=== PATIENT | male | born 1945 | race Caucasian/White ===

== ENCOUNTER 2019-06-20 21:55 | Emergency (ER) | payer MEDICARE ==
--- NOTE | 2019-06-20 22:08 | ED Physician Documentation ---
History of Present Illness - Stated complaint Stated Complaint: CP - Chief complaint Chief Complaint: Cardiac - History obtained from History obtained from: Patient (the patient is a 73 y/o m w chest pain for 1 month off and on and worse this evening. Patient also words that he has a history of polycythemia vera he also has newly diagnosed insulin-dependent diabetes his blood sugars have been running in the 500s today. Denies fevers or recent cough or illness.Denies any history of pulmonary embolism or DVT or [place] or stroke.) Review of Systems Constitutional: reports: Reviewed and negative Eyes: reports: Reviewed and negative Ears: reports: Reviewed and negative Nose: reports: Reviewed and negative Throat: reports: Reviewed and negative Cardiac: reports: Chest pain / pressure Respiratory: reports: Reviewed and negative GI: reports: Reviewed and negative : reports: Reviewed and negative Skin: reports: Reviewed and negative Musculoskeletal: reports: Reviewed and negative Neurologic: reports: Reviewed and negative Psychiatric: reports: Reviewed and negative Endocrine: reports: Reviewed and negative Immunocompromised: reports: Reviewed and negative PD PAST MEDICAL HISTORY - Past Medical History Cardiovascular: None Respiratory: None Endocrine/Autoimmune: Type 2 diabetes GI: None : None HEENT: None Musculoskeletal: None Derm: None - Past Surgical History Past Surgical History: Yes - Present Medications Home Medications: Ambulatory Orders Medication Instructions Recorded Confirmed Ascorbate Calcium [Vitamin C] 120 gm PO Q7D 11/02/12 03/31/19 Aspirin Chewable [[employer] 81 mg PO DAILY 11/02/12 03/31/19 Aspirin] Cholecalciferol (Vitamin D3) 5,000 unit PO DAILY 11/02/12 03/31/19 [Vitamin D] Hydroxyurea [Hydrea] 500 mg PO DAILY 30 Days #45 capsule 04/01/18 03/31/19 metFORMIN [Glucophage] 500 - 1,000 mg PO BID 01/20/19 03/31/19 - Allergies Allergies/Adverse Reactions: Allergies Allergy/AdvReac Type Severity Reaction Status Date / Time Penicillins Allergy Rash Verified 06/20/19 22:00 simvastatin Allergy Itching Verified 06/20/19 22:00 berberine AdvReac Unknown Verified 06/20/19 22:00 gabapentin AdvReac Unknown Verified 06/20/19 22:00 - Social History Does the pt smoke?: No Smoking Status: Never smoker Does the pt have substance abuse?: No - Immunizations Immunizations are current?: Yes - POLST Patient has POLST: Yes PD ED PE NORMAL - Vitals Vital signs reviewed: Yes - General General: Alert and oriented X 3, No acute distress, Well developed/nourished - HEENT HEENT: Atraumatic, PERRL, Moist mucous membranes - Neck Neck: Supple, no meningeal sign, Thyroid normal, No JVD - Cardiac Cardiac: RRR, No murmur, Strong equal pulses - Respiratory Respiratory: No respiratory distress, Clear bilaterally - Abdomen Abdomen: Normal bowel sounds, Soft, Non tender, Non distended, No organomegaly - Back Back: No CVA TTP, No spinal TTP - Derm Derm: Normal color, Warm and dry, No rash - Extremities Extremities: No deformity, No tenderness to palpate, Normal ROM s pain, No edema, No calf tenderness / cord - Neuro Neuro: Alert and oriented X 3, director field services 2-12 intact, No motor deficit, No sensory deficit, Normal speech - Psych Psych: Normal mood, Normal affect Results - Vitals Vitals: Vital Signs - 24 hr 06/20/19 06/20/19 06/20/19 22:00 22:40 22:45 Temperature 37.1 C Heart Rate 101 H 98 111 H Respiratory 16 16 Rate Blood Pressure 163/86 H 139/84 H 91/91 H O2 Saturation 100 99 06/20/19 06/21/19 06/21/19 23:30 02:10 02:24 Temperature Heart Rate 85 76 76 Respiratory 19 18 Rate Blood Pressure 123/70 115/63 116/66 O2 Saturation 99 98 06/21/19 02:51 Temperature Heart Rate 72 Respiratory Rate Blood Pressure 112/65 O2 Saturation Oxygen O2 Source Room air - EKG (time done) 22:03 Rate: Other (no stemi) 22:17 Rate: Other (Right-sided EKG shows no obvious STEMI) 00:22 Rate: Other (no stemi) - Labs Labs: Laboratory Tests 06/20/19 06/20/19 06/20/19 21:10 22:10 22:10 WBC 10.0 RBC 2.75 L Hgb 9.0 L Hct 27.9 L MCV 101.5 H MCH 32.7 H MCHC 32.3 RDW 20.5 H Plt Count 128 L MPV 12.3 H Neut # (Auto) 7.0 H Lymph # (Auto) 0.6 L Kerr # (Auto) 1.1 H Eos # (Auto) 0.2 Baso # (Auto) 0.1 Absolute Nucleated RBC 0.99 Band Neuts % (Manual) Not Reportable Abnorm Lymph % (Manual) Not Reportable Nucleated RBC % 9.9 Neutrophils # (Manual) Not Reportable Lymphocytes # (Manual) Not Reportable Monocytes # (Manual) Not Reportable Eosinophils # (Manual) Not Reportable Basophils # (Manual) Not Reportable Differential Comment MANUAL=AUTO DIFF Manual Slide Review Indicated Platelet Estimate DECREASED (<130,000) Platelet Morphology 1+ LARGE PLATELETS RBC Morph Micro Appear 1+ POLYCHROMASIA PT INR APTT VBG pH VBG pCO2 VBG pO2 VBG HCO3 VBG Total CO2 VBG O2 Saturation VBG Base Excess Sodium 130 L Potassium 4.4 Chloride 99 L Carbon Dioxide 20 L Anion Gap 11.0 BUN 39 H Creatinine 1.3 H Estimated GFR (MDRD) 54 L Glucose 502 H* POC Whole Bld Glucose Calcium 8.6 Total Bilirubin 1.9 H AST 37 ALT 26 Alkaline Phosphatase 180 H Total Creatine Kinase 14 L Troponin I High Sens B-Natriuretic Peptide Total Protein 6.7 Albumin 3.9 Globulin 2.8 Albumin/Globulin Ratio 1.4 Lipase 68 H Urine Color Urine Clarity Urine pH Ur Specific [place] Urine Protein Urine Glucose (UA) Urine Ketones Urine Occult Blood Urine Nitrite Urine Bilirubin Urine Urobilinogen Ur Leukocyte Esterase Urine RBC Urine WBC Ur Squamous Epith Cells Urine Bacteria Urine Mucus Ur Microscopic Review Urine Culture Comments Serum Ketones NEGATIVE 06/20/19 06/20/19 06/20/19 22:10 22:10 22:10 WBC RBC Hgb Hct MCV MCH MCHC RDW Plt Count MPV Neut # (Auto) Lymph # (Auto) Kerr # (Auto) Eos # (Auto) Baso # (Auto) Absolute Nucleated RBC Band Neuts % (Manual) Abnorm Lymph % (Manual) Nucleated RBC % Neutrophils # (Manual) Lymphocytes # (Manual) Monocytes # (Manual) Eosinophils # (Manual) Basophils # (Manual) Differential Comment Manual Slide Review Platelet Estimate Platelet Morphology RBC Morph Micro Appear PT 13.2 H INR 1.2 APTT 28.7 VBG pH VBG pCO2 VBG pO2 VBG HCO3 VBG Total CO2 VBG O2 Saturation VBG Base Excess Sodium Potassium Chloride Carbon Dioxide Anion Gap BUN Creatinine Estimated GFR (MDRD) Glucose POC Whole Bld Glucose Calcium Total Bilirubin AST ALT Alkaline Phosphatase Total Creatine Kinase Troponin I High Sens 13.7 B-Natriuretic Peptide 57 Total Protein Albumin Globulin Albumin/Globulin Ratio Lipase Urine Color Urine Clarity Urine pH Ur Specific [place] Urine Protein Urine Glucose (UA) Urine Ketones Urine Occult Blood Urine Nitrite Urine Bilirubin Urine Urobilinogen Ur Leukocyte Esterase Urine RBC Urine WBC Ur Squamous Epith Cells Urine Bacteria Urine Mucus Ur Microscopic Review Urine Culture Comments Serum Ketones 06/20/19 06/20/19 06/20/19 22:35 22:37 23:50 WBC RBC Hgb Hct MCV MCH MCHC RDW Plt Count MPV Neut # (Auto) Lymph # (Auto) Kerr # (Auto) Eos # (Auto) Baso # (Auto) Absolute Nucleated RBC Band Neuts % (Manual) Abnorm Lymph % (Manual) Nucleated RBC % Neutrophils # (Manual) Lymphocytes # (Manual) Monocytes # (Manual) Eosinophils # (Manual) Basophils # (Manual) Differential Comment Manual Slide Review Platelet Estimate Platelet Morphology RBC Morph Micro Appear PT INR APTT VBG pH 7.454 H VBG pCO2 28.5 L VBG pO2 51.0 H VBG HCO3 19.5 L VBG Total CO2 20.4 L VBG O2 Saturation 83.8 H VBG Base Excess -3.5 L Sodium Potassium Chloride Carbon Dioxide Anion Gap BUN Creatinine Estimated GFR (MDRD) Glucose POC Whole Bld Glucose 497 H Calcium Total Bilirubin AST ALT Alkaline Phosphatase Total Creatine Kinase Troponin I High Sens 96.6 H* B-Natriuretic Peptide Total Protein Albumin Globulin Albumin/Globulin Ratio Lipase Urine Color Urine Clarity Urine pH Ur Specific [place] Urine Protein Urine Glucose (UA) Urine Ketones Urine Occult Blood Urine Nitrite Urine Bilirubin Urine Urobilinogen Ur Leukocyte Esterase Urine RBC Urine WBC Ur Squamous Epith Cells Urine Bacteria Urine Mucus Ur Microscopic Review Urine Culture Comments Serum Ketones 06/21/19 06/21/19 00:05 00:23 WBC RBC Hgb Hct MCV MCH MCHC RDW Plt Count MPV Neut # (Auto) Lymph # (Auto) Kerr # (Auto) Eos # (Auto) Baso # (Auto) Absolute Nucleated RBC Band Neuts % (Manual) Abnorm Lymph % (Manual) Nucleated RBC % Neutrophils # (Manual) Lymphocytes # (Manual) Monocytes # (Manual) Eosinophils # (Manual) Basophils # (Manual) Differential Comment Manual Slide Review Platelet Estimate Platelet Morphology RBC Morph Micro Appear PT INR APTT VBG pH VBG pCO2 VBG pO2 VBG HCO3 VBG Total CO2 VBG O2 Saturation VBG Base Excess Sodium Potassium Chloride Carbon Dioxide Anion Gap BUN Creatinine Estimated GFR (MDRD) Glucose POC Whole Bld Glucose 402 H Calcium Total Bilirubin AST ALT Alkaline Phosphatase Total Creatine Kinase Troponin I High Sens B-Natriuretic Peptide Total Protein Albumin Globulin Albumin/Globulin Ratio Lipase Urine Color YELLOW Urine Clarity CLEAR Urine pH 6.0 Ur Specific [place] 1.015 Urine Protein 30 H Urine Glucose (UA) >=1000 H Urine Ketones NEGATIVE Urine Occult Blood TRACE-LYSE Urine Nitrite NEGATIVE Urine Bilirubin NEGATIVE Urine Urobilinogen 0.2 (NORMAL) Ur Leukocyte Esterase NEGATIVE Urine RBC 0-5 Urine WBC 0-3 Ur Squamous Epith Cells NONE SEEN Urine Bacteria None Seen Urine Mucus Few Strands Ur Microscopic Review INDICATED Urine Culture Comments NOT INDICATED Serum Ketones PD MEDICAL DECISION MAKING - ED course Complexity details: considered differential (ACS, DKA.), other (Patient's initial EKG is abnormal but no STEMI initial troponin was not elevated second troponin but high-sensitivity did did come back elevated the patient was having chest pain that was coming and going at this point the patient was started on a nitro drip as well as heparin bolus and heparin drip he did receive aspirin his CTA of the chest shows no pulmonary embolism I did speak with the trestleman at [facility] who agreed to accept this patient as well as the beer merchant who agreed to accept this patient patient updated and agreeable to transfer.) - Consults Consults: Discussed case with (dr. leary at [facility] trestleman agrees to accept this patient as well as dr. montgomery the hospitalist agrees to accept this patient to [facility]. ) - Critical Care Time(min): 30 Time Includes: Direct patient care, Review records, Reassess patient, Document care, Coordinate care, Medical consult Data interpretation: Labs, CXR Procedures included in critical care time: Peripheral IV Procedures excluded from critical care time: EKG Departure - Departure Disposition: 02 Transfer Acute Care Hosp Clinical Impression: NSTEMI (non-ST elevated myocardial infarction), Hyperglycemia Chest pain Qualifiers: Chest pain type: unspecified Qualified Code(s): R07.9 - Chest pain, unspecified Condition: Stable
[2019-06-20 22:17] LABS: BASOPHILS # (AUTO) 0.1 10^3/uL (0.0-0.1); EOSINOPHILS # (AUTO) 0.2 10^3/uL (0.0-0.7); EOSINOPHILS % (AUTO) 2.1 %; LYMPHOCYTES # (AUTO) 0.6 10^3/uL (1.5-3.5); LYMPHOCYTES % (AUTO) 6.2 %; MEAN CORPUSCULAR HEMOGLOBIN 32.7 pg (27.0-31.0); MEAN CORPUSCULAR HGB CONC 32.3 g/dL (32.0-36.0); MEAN CORPUSCULAR VOLUME 101.5 fL (80.0-94.0); MEAN PLATELET VOLUME 12.3 fL (7.4-11.4); MONOCYTES # (AUTO) 1.1 10^3/uL (0.0-1.0); MONOCYTES % (AUTO) 10.9 %; NEUTROPHILS % (AUTO) 69.7 %; PLT - PLATELET COUNT 128 10^3/uL (130-450); RED BLOOD COUNT 2.75 10^6/uL (4.70-6.10); RED CELL DISTRIBUTION WIDTH 20.5 % (12.0-15.0)
[2019-06-20] MEDS ORDERED: ASPIRIN 325 MG TABLET PO STA (22:23)
[2019-06-20] MEDS ORDERED: NITROGLYCERIN SL 0.4 MG TABLET SL PRN (22:24)
[2019-06-20 22:32] LABS: ALBUMIN 3.9 g/dL (3.2-5.5); ALBUMIN/GLOBULIN RATIO 1.4 (1.0-2.2); BILIRUBIN,TOTAL 1.9 mg/dL (0.2-1.0); CALCIUM 8.6 mg/dL (8.5-10.3); CREATININE 1.3 mg/dL (0.6-1.2); TOTAL PROTEIN 6.7 g/dL (6.7-8.2)
[2019-06-20] MEDS ORDERED: SODIUM CHLORIDE 0.9% 1,000 ML IV ONE (22:32)
[2019-06-20 22:38] LABS: KETONES, SERUM (ACETEST) NEGATIVE (NEGATIVE)
[2019-06-20 22:39] LABS: INR 1.2 (0.8-1.2); PT - PROTHROMBIN TIME 13.2 secs (9.9-12.6)
[2019-06-20 22:39] LABS: VBG PH 7.454 (7.31-7.41)
[2019-06-20 22:40] LABS: VBG BASE EXCESS -3.5 mmol/L (-2 - +2); VBG PCO2 28.5 mmHg (41-51); VBG TOTAL CO2 20.4 mmol/L (24-29)
[2019-06-20 22:43] LABS: CK- CREATINE KINASE 14 IU/L (22-269)
[2019-06-20 22:47] LABS: PARTIAL THROMBOPLASTIN TIME 28.7 secs (24.9-33.3)
[2019-06-20 22:51] LABS: DIFFERENTIAL COMMENT MANUAL=AUTO DIFF; PLATELET ESTIMATE, MANUAL DECREASED (<130,000) (NORMAL); PLATELET MORPHOLOGY 1+ LARGE PLATELETS (NORMAL)
--- NOTE | 2019-06-20 23:29 | XRAY Report ---
Reason: Chest pain Procedure Date: 06/20/2019 Accession Number: [id number] / [id number] Procedure: XR - Chest 1 View X-Ray CPT Code: 17266 Final Report FULL RESULT: EXAM: CHEST RADIOGRAPHY EXAM DATE: 06/20/2019 10:50 PM. CLINICAL HISTORY: Chest pain. COMPARISON: None. TECHNIQUE: 1 view. FINDINGS: Lungs/Pleura: No focal opacities evident. No pleural effusion. No pneumothorax. Mediastinum: Within exam limitations, the cardiomediastinal contour is normal. Other: Bilateral apices not completely imaged. IMPRESSION: Normal single view chest. RADIA
[2019-06-21 00:10] LABS: BILIRUBIN,URINE NEGATIVE (NEGATIVE); GLUCOSE, URINE (UA) >=1000 mg/dL (NEGATIVE); KETONES,URINE (UA) NEGATIVE (NEGATIVE); LEUKOCYTE ESTERASE, URINE NEGATIVE (NEGATIVE); NITRITE,URINE NEGATIVE (NEGATIVE); OCCULT BLOOD,URINE TRACE-LYSE (NEGATIVE); PROTEIN,URINE 30 mg/dL (NEGATIVE); UROBILINOGEN,URINE 0.2 (NORMAL) E.U./dL (NORMAL)
[2019-06-21 00:11] LABS: CLARITY,URINE CLEAR (CLEAR)
[2019-06-21 00:15] LABS: BACTERIA,URINE None Seen /HPF (None Seen); RBC,URINE 0-5 /HPF (0-5); SQUAMOUS EPITHELIAL CELL,UR NONE SEEN (<= Few)
[2019-06-21 00:16] LABS: MUCUS,URINE Few Strands
[2019-06-21] MEDS ORDERED: IOVERSOL 320 100 ML VIAL IVP ONE ×2 (00:42→01:17)
[2019-06-21] MEDS ORDERED: HEPARIN 25000UNITS/500ML (D5W) 25,000 UNIT/500 ML BAG IV STA (00:59)
[2019-06-21] MEDS ORDERED: HEPARIN 5,000 UNIT/ML VIAL IVP STA (00:59)
--- NOTE | 2019-06-21 01:58 | CT Report ---
Reason: cp/sob Procedure Date: 06/21/2019 Accession Number: [id number] / [id number] Procedure: CT - ANGIO CHEST W/WO CPT Code: Final Report FULL RESULT: EXAM: CT ANGIOGRAM CHEST EXAM DATE: 06/21/2019 01:15 AM. CLINICAL HISTORY: Chest pain and shortness of breath. COMPARISON: None. TECHNIQUE: Routine helical imaging was performed through the chest in the pulmonary arterial phase. IV Contrast: OPTIRAY 320. Reconstructions: Coronal 3-D MIP reconstructions. Sagittal and coronal. In accordance with CT protocol optimization, one or more of the following dose reduction techniques were utilized for this exam: automated exposure control, adjustment of mA and/or KV based on patient size, or use of iterative reconstructive technique. FINDINGS: Pulmonary Arteries: Diagnostic quality: Adequate through the segmental arteries. No evidence for acute or chronic pulmonary emboli. Lungs/Pleura: Mild bibasilar atelectasis. No alveolar consolidation or pleural effusion seen. No pneumothorax. Mediastinum: Heart size is normal. Coronary artery calcifications. No lymphadenopathy seen. Thoracic Aorta: No aneurysm or dissection seen. Mild atherosclerosis. Upper Abdomen: The spleen is not completely imaged but appears enlarged, measuring at least 15.9 cm. Other: Degenerative joint disease in the shoulders. Degenerative changes in the spine. IMPRESSION: 1. No pulmonary emboli seen. 2. Coronary artery calcifications. 3. Splenomegaly. The spleen is not completely imaged. RADIA
[2019-06-21] MEDS ORDERED: NITROGLYCERIN 50 MG/250 ML 50 MG/250 ML BOTTLE IV SCH (02:00)
[2019-06-21 02:51] VITALS: BP 112/65
== END 2019-06-21 03:16 | disposition short-term general hospital (02) ==
LOC: ED 21:55
DX: I21.4 Non-ST elevation (NSTEMI) myocardial infarction (principal); E11.65 Type 2 diabetes mellitus with hyperglycemia; D45 Polycythemia vera; Z79.84 Long term (current) use of oral hypoglycemic drugs; Z79.899 Other long term (current) drug therapy; Z79.82 Long term (current) use of aspirin
CPT/HCPCS: 36415; 71045; 71275; 80053; 81001; 82009; 82550; 82803; 83690; 83880; 84484; 85025; 85610; 85730; 93005; 96361; 96365; 96375; 99291; A9270; Q9967; 81003; 87086

== ENCOUNTER 2019-06-21 03:17 | Outpatient (CLI) | payer MEDICARE | END 2019-06-21 03:18 | disposition short-term general hospital (02) | LOC: EMS 03:17 | PROVIDERS: ATTEND Surgery | DX: I21.4 Non-ST elevation (NSTEMI) myocardial infarction (principal) | CPT/HCPCS: A0425; A0426 ==

== ENCOUNTER 2019-08-16 02:00 | Outpatient (CLI) | payer MEDICARE | END 2019-08-16 02:01 | disposition critical access hospital (66) | LOC: EMS 02:00 | PROVIDERS: ATTEND Surgery | DX: R07.89 Other chest pain (principal) | CPT/HCPCS: A0425; A0427 ==

== ENCOUNTER 2019-08-16 02:29 | Emergency (ER) | payer MEDICARE ==
[2019-08-16] MEDS ORDERED: NITROGLYCERIN 2% PASTE TOP STA ×2 (02:46→02:49)
[2019-08-16] MEDS ORDERED: ASPIRIN CHEW 81 MG TABLET PO STA (02:50)
[2019-08-16 03:01] LABS: BASOPHILS % (AUTO) 0.4 %; EOSINOPHILS # (AUTO) 0.2 10^3/uL (0.0-0.7); EOSINOPHILS % (AUTO) 1.8 %; LYMPHOCYTES # (AUTO) 0.5 10^3/uL (1.5-3.5); LYMPHOCYTES % (AUTO) 5.7 %; MEAN CORPUSCULAR HEMOGLOBIN 30.4 pg (27.0-31.0); MEAN CORPUSCULAR HGB CONC 30.7 g/dL (32.0-36.0); MEAN PLATELET VOLUME 10.7 fL (7.4-11.4); MONOCYTES # (AUTO) 0.7 10^3/uL (0.0-1.0); MONOCYTES % (AUTO) 7.1 %; NEUTROPHILS # (AUTO) 6.9 10^3/uL (1.5-6.6); NEUTROPHILS % (AUTO) 76.1 %; PLT - PLATELET COUNT 147 10^3/uL (130-450); RED BLOOD COUNT 2.07 10^6/uL (4.70-6.10); RED CELL DISTRIBUTION WIDTH 19.9 % (12.0-15.0); WHITE BLOOD COUNT 9.1 x10^3/uL (4.8-10.8)
[2019-08-16 03:03] LABS: HGB - HEMOGLOBIN 6.3 g/dL (14.0-18.0)
[2019-08-16 03:11] LABS: ALBUMIN 3.3 g/dL (3.2-5.5); ALBUMIN/GLOBULIN RATIO 1.2 (1.0-2.2); BILIRUBIN,TOTAL 1.4 mg/dL (0.2-1.0); TOTAL PROTEIN 6.1 g/dL (6.7-8.2)
--- NOTE | 2019-08-16 03:36 | ED Physician Documentation ---
History of Present Illness - Stated complaint Stated Complaint: ANGINA - Chief complaint Chief Complaint: Cardiac - History obtained from History obtained from: Patient, EMS - Additonal information Additional information: Patient comes emergency department by EMS complaining of chest pain does not seem to be helped by his nitroglycerin. The patient has a history of diffuse coronary artery disease and non-ST elevation NH in mid June at which time he was transferred to [facility]. He also has a history of polycythemia vera and anemia. Patient states that he has had chest pain prematurity day since getting discharged from [facility], and that he is not followed up with his coach builder yet. He states that normally, he takes his nitroglycerin and the pain completely resolves, but that today, he would take his nitro and it would help the pain somewhat but the pain would come right back. Patient states he took multiple nitroglycerin throughout the course of yesterday afternoon and this evening. He states he could not sleep because the pain finally decided to come in. He denies shortness of breath. No nausea or vomiting. Patient states that he has not had any blood in his stools. No black tarry stools. Review of patient's records from [facility] reveals that the patient had a cardiac catheterization in June that showed diffuse coronary artery disease, and that at that time, they had opted for medical management as they did not feel the patient would be a good candidate for stenting at that time. They also stated intent to do a nuclear medicine study to try to pinpoint the focus of ischemia. Dr. Shaffer also stated his intent to talk to cardiothoracic surgery about whether the patient would possibly be a candidate for bypass grafting, though it was felt that most likely, the patient would not be considered a good candidate for this. Patient was found to be anemic at the time he was admitted to [facility], and it was not clear why at that time. He had endoscopy and colonoscopy per formed and this did not show any obvious source of potential blood loss. Patient states that currently, his pain is 8 out of he states nothing really makes it better or worse. The patient states he has not seen cardiology since he was discharged, and had to delay the appointment he was given because of his daughter's upcoming wedding. Review of Systems Ten Systems: 10 systems reviewed and negative Constitutional: reports: Reviewed and negative Eyes: reports: Reviewed and negative Ears: reports: Reviewed and negative Nose: reports: Reviewed and negative Throat: reports: Reviewed and negative Cardiac: reports: Chest pain / pressure Respiratory: reports: Reviewed and negative GI: reports: Reviewed and negative : reports: Reviewed and negative Skin: reports: Reviewed and negative Musculoskeletal: reports: Reviewed and negative Neurologic: reports: Reviewed and negative Psychiatric: reports: Reviewed and negative Endocrine: reports: Reviewed and negative Immunocompromised: reports: Reviewed and negative PD PAST MEDICAL HISTORY - Past Medical History Cardiovascular: None Respiratory: None Endocrine/Autoimmune: Type 2 diabetes GI: None : None HEENT: None Musculoskeletal: None Derm: None - Past Surgical History Past Surgical History: Yes - Present Medications Home Medications: Ambulatory Orders Medication Instructions Recorded Confirmed Ascorbate Calcium [Vitamin C] 120 gm PO Q7D 11/02/12 07/07/19 Aspirin Chewable [[employer] 81 mg PO DAILY 11/02/12 07/07/19 Aspirin] Cholecalciferol (Vitamin D3) 5,000 unit PO DAILY 11/02/12 07/07/19 [Vitamin D] Hydroxyurea [Hydrea] 500 mg PO DAILY 30 Days #45 capsule 04/01/18 07/07/19 metFORMIN [Glucophage] 500 - 1,000 mg PO BID 01/20/19 07/07/19 Atorvastatin Calcium 40 mg PO QPM 07/12/19 07/12/19 Clopidogrel Bisulfate [Clopidogrel] 75 mg PO DAILY 07/12/19 07/12/19 Insulin Glargine,Hum.rec.anlog 50 units SUBQ DAILY 07/12/19 07/12/19 [Basaglar Kwikpen U-100] Insulin Lispro [Humalog Kwikpen 15 - 40 units SUBQ TIDWM 07/12/19 07/12/19 U-100] - Allergies Allergies/Adverse Reactions: Allergies Allergy/AdvReac Type Severity Reaction Status Date / Time Penicillins Allergy Rash Verified 07/07/19 13:48 simvastatin Allergy Itching Verified 07/07/19 13:48 berberine AdvReac Unknown Verified 07/07/19 13:48 gabapentin AdvReac Unknown Verified 07/07/19 13:48 - Social History Does the pt smoke?: No Smoking Status: Never smoker Does the pt have substance abuse?: No - Immunizations Immunizations are current?: Yes - POLST Patient has POLST: Yes PD ED PE NORMAL - Vitals Vital signs reviewed: Yes - General General: Alert and oriented X 3, No acute distress (Patient is not in distress, but appears moderately uncomfortable.), Well developed/nourished - HEENT HEENT: Atraumatic, PERRL, EOMI, Moist mucous membranes - Neck Neck: Supple, no meningeal sign - Cardiac Cardiac: RRR, No murmur, Strong equal pulses - Respiratory Respiratory: No respiratory distress, Clear bilaterally - Abdomen Abdomen: Soft, Non tender, Non distended - Rectal Rectal: Other (Brown stool, no mass in rectum. Guaiac pending in lab.) - Back Back: Other (Grossly normal) - Derm Derm: Warm and dry, No rash, Other (Mild pallor) - Extremities Extremities: No deformity, No calf tenderness / cord, Other (2+ pitting edema bilaterally.) - Neuro Neuro: Alert and oriented X 3, hip hop dance instructor 2-12 intact, No motor deficit, No sensory deficit, Normal speech - Psych Psych: Normal mood, Normal affect Results - Vitals Vitals: Oxygen O2 Source Room air Oxygen Flow Rate 2 - EKG (time done) 0236 Rate: Rate (enter#) (93) Rhythm: NSR, LAE [place]: Normal Intervals: RBBB Ischemia: ST depression (diffuse, V2-6, II, AVL) - Labs Labs: Laboratory Tests 08/16/19 08/16/19 08/16/19 02:51 02:51 02:51 WBC 9.1 RBC 2.07 L Hgb 6.3 L* Hct 20.5 L MCV 99.0 H MCH 30.4 MCHC 30.7 L RDW 19.9 H Plt Count 147 MPV 10.7 Neut # (Auto) 6.9 H Lymph # (Auto) 0.5 L [place] # (Auto) 0.7 Eos # (Auto) 0.2 Baso # (Auto) 0.0 Absolute Nucleated RBC 0.44 Nucleated RBC % 4.8 Sodium 131 L Potassium 4.7 Chloride 104 Carbon Dioxide 18 L Anion Gap 9.0 BUN 34 H Creatinine 1.0 Estimated GFR (MDRD) 73 L Glucose 116 H Calcium 8.0 L Total Bilirubin 1.4 H AST 23 ALT 12 Alkaline Phosphatase 135 H Troponin I High Sens 112.4 H* Total Protein 6.1 L Albumin 3.3 Globulin 2.8 Albumin/Globulin Ratio 1.2 Lipase 44 Stl Occult Blood (IFOB) Blood Type Blood Type Recheck Antibody Screen Crossmatch IS Only 08/16/19 08/16/19 08/16/19 02:51 03:19 04:04 WBC RBC Hgb Hct MCV MCH MCHC RDW Plt Count MPV Neut # (Auto) Lymph # (Auto) [place] # (Auto) Eos # (Auto) Baso # (Auto) Absolute Nucleated RBC Nucleated RBC % Sodium Potassium Chloride Carbon Dioxide Anion Gap BUN Creatinine Estimated GFR (MDRD) Glucose Calcium Total Bilirubin AST ALT Alkaline Phosphatase Troponin I High Sens Total Protein Albumin Globulin Albumin/Globulin Ratio Lipase Stl Occult Blood (IFOB) NEGATIVE Blood Type A POSITIVE Blood Type Recheck A POSITIVE Antibody Screen NEGATIVE Crossmatch IS Only See Detail - Rads (name of study) CXR Radiology: Prelim report reviewed, Final report received, EMP read indepedently, See rad report PD MEDICAL DECISION MAKING - ED course Complexity details: reviewed results, re-evaluated patient, considered differential, d/w patient ED course: The patient was still in significant pain upon arrival in the emergency depar tment, but his blood pressure was borderline hypotensive, and I was concerned that further spot doses of nitroglycerin would drop his pressure too much. I had a similar concern with regard to nitro drip. As such, I did place an inch of nitroglycerin paste on his chest and that this did improve his pain a fair amount. On reevaluation, the patient was holding steady with systolic blood pressures in the upper 90s and was reporting his pain a 2 out of 10, much improved from his initial pain level. The patient was worked up with labs, EKG, and chest x-ray. His EKG was unchanged from the last one here in our system on 06/20/2019, and showed diffuse ST depressions. His troponin was 112. Hemoglobin was very low at 6.3. I did order a blood transfusion for the patient. A second large-bore IV was placed. I spoke with of [facility] cardiology and he stated that the patient should be transferred but should not be started on heparin, due to his severe anemia. He stated that cardiology could be consulted, though it is unlikely they will do anything differently than they are ready doing for the patient. He also recommended hematology consult. I spoke with Dr. Bird, who was hospitalist on-call and agreed to accept this patient in transfer to his service. [place] triage physician approved the transfer to [facility]. I spoke with the patient who was agreeable to being transferred back to [facility]. Departure - Departure Disposition: 02 Transfer Acute Care Hosp Clinical Impression: Myocardial infarction Qualifiers: Myocardial infarction type: non-ST elevation myocardial infarction Qualified Code(s): I21.4 - Non-ST elevation (NSTEMI) myocardial infarction Anemia Qualifiers: Anemia type: unspecified type Qualified Code(s): D64.9 - Anemia, unspecified Condition: Serious Discharge Date/Time: 08/16/19 07:00
[2019-08-16 06:55] VITALS: BP 94/58
--- NOTE | 2019-08-16 09:45 | XRAY Report ---
PROCEDURE: Chest 1 View X-Ray INDICATIONS: Chest pain TECHNIQUE: One view of the chest was acquired. COMPARISON: Chest x-ray 06/20/2019 FINDINGS: Surgical changes and devices: None. Lungs and pleura: No pleural effusions or pneumothorax. Chronic interstitial changes. Lungs are tame[place] r. Mediastinum: Mediastinal contours appear normal. Heart size is borderline prominent. Bones and chest wall: No suspicious bony lesions. Overlying soft tissues appear unremarkable. IMPRESSION: No acute pulmonary process. The above findings are concordant with preliminary report. Reviewed by: Alexandra Vega MD on 08/16/2019 9:44 AM PDT Approved by: Alexandra Vega MD on 08/16/2019 9:44 AM PDT Station ID: [id number]
== END 2019-08-16 07:00 | disposition short-term general hospital (02) ==
LOC: EDBD → EDUNIT# → ED 02:29
DX: I21.4 Non-ST elevation (NSTEMI) myocardial infarction (principal); I25.10 Atherosclerotic heart disease of native coronary artery without angina pectoris; I25.2 Old myocardial infarction; Z98.61 Coronary angioplasty status; I45.10 Unspecified right bundle-branch block; D64.9 Anemia, unspecified; D45 Polycythemia vera; E11.9 Type 2 diabetes mellitus without complications; Z79.4 Long term (current) use of insulin; Z79.82 Long term (current) use of aspirin
CPT/HCPCS: 36415; 36430; 71045; 80053; 82274; 83690; 84484; 85025; 86850; 86900; 86901; 86920; 93005; 99285; A9270; P9016

== ENCOUNTER 2019-09-02 11:32 | Emergency (ER) | payer MEDICARE ==
--- NOTE | 2019-09-02 12:16 | ED Physician Documentation ---
PD HPI ABD PAIN - Stated complaint Stated Complaint: BACK PX, CHILLS - POST BLOOD TRANSFUSION - Chief complaint Chief Complaint: General - History obtained from History obtained from: Patient - History of Present Illness Timing - onset: Today, Last night Timing - details: Abrupt onset Quality: Cramping, Aching, Pain Location: All over / everywhere, Periumbilical Radiation: Chest, Lower back (whic he has had with transfusions in the past) Improved by: No: Eating Worsened by: No: Eating Associated symptoms: Nausea, Loss of appetite. No: Fever, Diarrhea, Constipation, Melena, Chest pain Similar symptoms before: Has not had sx before Recently seen: Clinic (had transfusion in MAC of 2 units RBCs for Hbg 7.2. [place] okay with the blood. Started with abd pain and swelling of legs/trunk last night and into today. No history of CHF.) Review of Systems Constitutional: reports: Chills, Myalgias. denies: Fever Nose: denies: Rhinorrhea / runny nose, Congestion Throat: reports: Sore throat Respiratory: reports: Cough GI: reports: Abdominal Swelling, Nausea. denies: Vomiting, Diarrhea PD PAST MEDICAL HISTORY - Past Medical History Cardiovascular: None Respiratory: None Endocrine/Autoimmune: Type 2 diabetes GI: None : None HEENT: None Musculoskeletal: None Derm: None - Past Surgical History Past Surgical History: Yes - Present Medications Home Medications: Ambulatory Orders Medication Instructions Recorded Confirmed Ascorbate Calcium [Vitamin C] 120 gm PO Q7D 11/02/12 09/01/19 Aspirin Chewable [St Taqueria 81 mg PO DAILY 11/02/12 09/01/19 Aspirin] Cholecalciferol (Vitamin D3) 5,000 unit PO DAILY 11/02/12 09/01/19 [Vitamin D] Hydroxyurea [Hydrea] 500 mg PO DAILY 30 Days #45 capsule 04/01/18 09/01/19 metFORMIN [Glucophage] 500 - 1,000 mg PO BID 01/20/19 09/01/19 Atorvastatin Calcium 40 mg PO QPM 07/12/19 09/01/19 Clopidogrel Bisulfate [Clopidogrel] 75 mg PO DAILY 07/12/19 09/01/19 Insulin Glargine,Hum.rec.anlog 50 units SUBQ DAILY 07/12/19 09/01/19 [Basaglar Kwikpen U-100] Insulin Lispro [Humalog Kwikpen 15 - 40 units SUBQ TIDWM 07/12/19 09/01/19 U-100] Furosemide [Lasix] 20 mg PO DAILY #20 tablet 09/02/19 Hydrocodone/Acetaminophen [Cascilla 1 each PO Q6H PRN #12 tablet 09/02/19 5-325 Tablet] - Allergies Allergies/Adverse Reactions: Allergies Allergy/AdvReac Type Severity Reaction Status Date / Time Penicillins Allergy Rash Verified 09/01/19 14:26 simvastatin Allergy Itching Verified 09/01/19 14:26 berberine AdvReac Unknown Verified 09/01/19 14:26 gabapentin AdvReac Unknown Verified 09/01/19 14:26 - Social History Does the pt smoke?: No Smoking Status: Never smoker Does the pt have substance abuse?: No - Immunizations Immunizations are current?: Yes - POLST Patient has POLST: Yes PD ED PE NORMAL - Vitals Vital signs reviewed: Yes - General General: Alert and oriented X 3, No acute distress, Well developed/nourished - HEENT HEENT: Moist mucous membranes, Pharynx benign - Neck Neck: Supple, no meningeal sign, No adenopathy. No: No JVD (JVD noted at 45 degrees. ) - Cardiac Cardiac: RRR, No murmur - Respiratory Respiratory: No: Clear bilaterally (some crackles at bases. No coarse sounds. ) - Abdomen Abdomen: Soft, No organomegaly (distended abd diffusely without hernia nor masses. Bowel sounds diminished. Dullness to percussion. ), Other (distended and full with hypoactive bowel sounds. ). No: Normal bowel sounds Results - Vitals Vitals: Vital Signs - 24 hr 09/02/19 09/02/19 09/02/19 11:43 12:00 12:30 Temperature 37.2 C Heart Rate 66 83 72 Respiratory 16 22 24 Rate Blood Pressure 123/79 130/77 120/71 O2 Saturation 97 99 99 09/02/19 09/02/19 09/02/19 13:00 14:09 14:30 Temperature 37.6 C H Heart Rate 89 92 97 Respiratory 22 12 22 Rate Blood Pressure 127/71 133/77 H 142/80 H O2 Saturation 100 98 100 09/02/19 15:00 Temperature Heart Rate 93 Respiratory 22 Rate Blood Pressure 129/78 O2 Saturation 100 Oxygen O2 Source Room air - EKG (time done) 12:58 Rate: Rate (enter#) (86) [place]: RAD Intervals: RBBB QRS: Normal Ischemia: Normal ST segments, Non specific changes. No: ST elevation c/w ischemia, ST depression Compare to prior EKG: Unchanged from prior EKG - Labs Labs: Laboratory Tests 09/02/19 09/02/19 09/02/19 13:01 13:01 13:01 WBC 11.3 H RBC 3.62 L Hgb 10.9 L Hct 34.3 L MCV 94.8 H MCH 30.1 MCHC 31.8 L RDW 18.3 H Plt Count 91 L Neut # (Auto) Not Reportable Lymph # (Auto) Not Reportable [place] # (Auto) Not Reportable Eos # (Auto) Not Reportable Baso # (Auto) Not Reportable Absolute Nucleated RBC Not Reportable Total Counted 100 Band Neuts % (Manual) 8 Abnorm Lymph % (Manual) 0 Metamyelocytes % 1 H Nucleated RBC % Not Reportable Neutrophils # (Manual) 9.6 H Lymphocytes # (Manual) 0.8 L Monocytes # (Manual) 0.7 Eosinophils # (Manual) 0.1 Basophils # (Manual) 0.0 Nucleated RBCs 5 Differential Comment MANUAL DIFFERENTIAL Manual Slide Review Indicated Platelet Estimate DECREASED (<130,000) Platelet Morphology NORMAL APPEARANCE RBC Morph Micro Appear 1+ ANISOCYTOSIS Sodium 130 L Potassium 4.4 Chloride 102 Carbon Dioxide 20 L Anion Gap 8.0 BUN 25 H Creatinine 1.0 Estimated GFR (MDRD) 73 L Glucose 91 POC Whole Bld Glucose Calcium 7.9 L Magnesium 2.3 Total Bilirubin 1.4 H AST 40 ALT 14 Alkaline Phosphatase 203 H B-Natriuretic Peptide Total Protein 6.4 L Albumin 3.6 Globulin 2.8 Albumin/Globulin Ratio 1.3 Lipase 37 Urine Color Urine Clarity Urine pH Ur Specific [place] Urine Protein Urine Glucose (UA) Urine Ketones Urine Occult Blood Urine Nitrite Urine Bilirubin Urine Urobilinogen Ur Leukocyte Esterase Urine RBC Urine WBC Ur Squamous Epith Cells Urine Bacteria Ur Microscopic Review Urine Culture Comments HARRY, Polyspecific NEGATIVE 09/02/19 09/02/19 09/02/19 13:01 13:35 16:44 WBC RBC Hgb Hct MCV MCH MCHC RDW Plt Count Neut # (Auto) Lymph # (Auto) [place] # (Auto) Eos # (Auto) Baso # (Auto) Absolute Nucleated RBC Total Counted Band Neuts % (Manual) Abnorm Lymph % (Manual) Metamyelocytes % Nucleated RBC % Neutrophils # (Manual) Lymphocytes # (Manual) Monocytes # (Manual) Eosinophils # (Manual) Basophils # (Manual) Nucleated RBCs Differential Comment Manual Slide Review Platelet Estimate Platelet Morphology RBC Morph Micro Appear Sodium Potassium Chloride Carbon Dioxide Anion Gap BUN Creatinine Estimated GFR (MDRD) Glucose POC Whole Bld Glucose 74 Calcium Magnesium Total Bilirubin AST ALT Alkaline Phosphatase B-Natriuretic Peptide 351 H Total Protein Albumin Globulin Albumin/Globulin Ratio Lipase Urine Color YELLOW Urine Clarity CLEAR Urine pH 6.0 Ur Specific [place] 1.020 Urine Protein 30 H Urine Glucose (UA) NEGATIVE Urine Ketones NEGATIVE Urine Occult Blood NEGATIVE Urine Nitrite NEGATIVE Urine Bilirubin NEGATIVE Urine Urobilinogen 1 (NORMAL) Ur Leukocyte Esterase NEGATIVE Urine RBC None Seen Urine WBC 0-3 Ur Squamous Epith Cells NONE SEEN Urine Bacteria None Seen Ur Microscopic Review INDICATED Urine Culture Comments NOT INDICATED HARRY, Polyspecific - Rads (name of study) chest xray Radiology: Prelim report reviewed, EMP read contemporaneously (some lower chest edema and small effusions), See rad report abd/pelvic CT Radiology: Prelim report reviewed (some ascites, soft tissue edema of abd wall. Suggested third spacing. Splenomegaly. Gaseous distension of intestines. ), See rad report PD MEDICAL DECISION MAKING - ED course Complexity details: re-evaluated patient (discussed with him and family home vs overnight, and they would prefer to go home. Will add diuretic. ), considered differential (has had some mild edema in legs and dyspnea. but has much increase after transfusion 2 units yesterday. Does not have other symptoms to suggest hemolytic, hypersensitvity, TRALI. Seem fluid overload. Given diuretics here with frequent urination and feeling improving.), d/w patient ED course: presume fluid overload from volume of transfusion atop some fluid increased bodywide. Consider low protein, some cardiomyopathy, possible pericardial effusion. among other things. He may want ECHO outpt in near future. Departure - Departure Disposition: 01 Home, Self Care Clinical Impression: Fluid overload due to blood transfusion Sacral decubitus ulcer Qualifiers: Pressure injury stage: stage 2 Qualified Code(s): L89.152 - Pressure ulcer of sacral region, stage 2 Condition: Stable Record reviewed to determine appropriate education?: Yes Instructions: ED Edema Legs Bilateral Follow-Up: Eric Cruz DO [Primary Care Provider] - TAHIRA PRO MD [Provider Admit Priv/Credential] - Prescriptions: Furosemide [Lasix] 20 mg PO DAILY #20 tablet Hydrocodone/Acetaminophen [[place] 5-325 Tablet] 1 each PO Q6H PRN #12 tablet PRN Reason: Pain Comments: It looks like you got fluid overloaded with the transfusion on top of likely some fluid retention already. Continue usual medications. Add furosemide daily (which is a diuretic water pill) for the next couple of weeks. Contact Dr. Pro's office to see if he has any further adjustments or suggestions. Contact him either tomorrow or Friday let him know how you are doing. You can use Tylenol if needed for pain every 4-6 hours. Add hydrocodone if needed for worse pain in the short-term. This will make you sleepy. Discharge Date/Time: 09/02/19 17:10
[2019-09-02] MEDS ORDERED: MORPHINE 10 MG/ML VIAL IVP STA (12:42)
[2019-09-02] MEDS ORDERED: FUROSEMIDE 20 MG/2 ML VIAL IVP STA (12:44)
[2019-09-02] MEDS ORDERED: IOVERSOL 320 100 ML VIAL IVP ONE ×2 (12:58→13:52)
[2019-09-02 13:09] LABS: BASOPHILS % (AUTO) 1.8 %; EOSINOPHILS % (AUTO) 2.2 %; HGB - HEMOGLOBIN 10.9 g/dL (14.0-18.0); LYMPHOCYTES % (AUTO) 2.4 %; MEAN CORPUSCULAR HEMOGLOBIN 30.1 pg (27.0-31.0); MEAN CORPUSCULAR HGB CONC 31.8 g/dL (32.0-36.0); MEAN CORPUSCULAR VOLUME 94.8 fL (80.0-94.0); NEUTROPHILS % (AUTO) 70.8 %; RED BLOOD COUNT 3.62 10^6/uL (4.70-6.10); RED CELL DISTRIBUTION WIDTH 18.3 % (12.0-15.0); WHITE BLOOD COUNT 11.3 x10^3/uL (4.8-10.8)
[2019-09-02 13:13] LABS: ABNORMAL LYMPHS % (MANUAL) 0 %
[2019-09-02 13:21] LABS: ALBUMIN 3.6 g/dL (3.2-5.5); ALBUMIN/GLOBULIN RATIO 1.3 (1.0-2.2); BILIRUBIN,TOTAL 1.4 mg/dL (0.2-1.0); CALCIUM 7.9 mg/dL (8.5-10.3); MAGNESIUM 2.3 mg/dL (1.7-2.8); TOTAL PROTEIN 6.4 g/dL (6.7-8.2)
--- NOTE | 2019-09-02 13:30 | XRAY Report ---
PROCEDURE: Chest 1 View X-Ray INDICATIONS: chest pain TECHNIQUE: One view of the chest was acquired. COMPARISON: 07/17/2019 FINDINGS: Surgical changes and devices: None. Lungs and pleura: Small left-sided pleural effusion developed in the interval since prior exam. Patch y opacities in the lung bases bilaterally concerning for multilobar pneumonia.. Mediastinum: Mediastinal contours appear normal. Heart size is normal. Bones and chest wall: No suspicious bony lesions. Overlying soft tissues appear unremarkable. IMPRESSION: 1. Bibasilar airspace opacities concerning for multilobar pneumonia. 2. Small left pleural effusion. Reviewed by: Hayde Sigala MD, PhD on 09/02/2019 1:29 PM PDT Approved by: Hayde Sigala MD, PhD on 09/02/2019 1:29 PM PDT Station ID: [id number]
[2019-09-02 13:44] LABS: BAND NEUTROPHILS % (MANUAL) 8 %; EOSINOPHILS # (MANUAL) 0.1 10^3/uL (0-0.7); LYMPHOCYTES # (MANUAL) 0.8 10^3/uL (1.5-3.5); LYMPHOCYTES % (MANUAL) 7 %; METAMYELOCYTES % (MANUAL) 1 %; MONOCYTES # (MANUAL) 0.7 10^3/uL (0.0-1.0)
[2019-09-02 13:47] LABS: PLATELET ESTIMATE, MANUAL DECREASED (<130,000) (NORMAL); PLATELET MORPHOLOGY NORMAL APPEARANCE (NORMAL)
[2019-09-02 13:48] LABS: DIFFERENTIAL COMMENT MANUAL DIFFERENTIAL
[2019-09-02 13:51] LABS: BILIRUBIN,URINE NEGATIVE (NEGATIVE); GLUCOSE, URINE (UA) NEGATIVE (NEGATIVE); KETONES,URINE (UA) NEGATIVE (NEGATIVE); LEUKOCYTE ESTERASE, URINE NEGATIVE (NEGATIVE); NITRITE,URINE NEGATIVE (NEGATIVE); OCCULT BLOOD,URINE NEGATIVE (NEGATIVE); PROTEIN,URINE 30 mg/dL (NEGATIVE); UROBILINOGEN,URINE 1 (NORMAL) E.U./dL (NORMAL)
[2019-09-02 13:53] LABS: PLT - PLATELET COUNT 91 10^3/uL (130-450)
[2019-09-02 13:54] LABS: CLARITY,URINE CLEAR (CLEAR)
[2019-09-02 14:02] LABS: BACTERIA,URINE None Seen /HPF (None Seen); RBC,URINE None Seen /HPF (0-5); SQUAMOUS EPITHELIAL CELL,UR NONE SEEN (<= Few)
[2019-09-02] MEDS ORDERED: CALCIUM GLUCONATE 1,000 MG in SODIUM CHLORIDE 0.9% 50 ML IV STA (14:37)
--- NOTE | 2019-09-02 14:59 | CT Report ---
PROCEDURE: Abdomen/Pelvis W INDICATIONS: abd distension; back pain; blood transfusion yeste CONTRAST: IV CONTRAST: Optiray 320 ml: 100 PO CONTRAST: *NO PO CONTRAST TECHNIQUE: After the administration of oral and intravenous contrast, 5 mm thick sections acquired from the diap hragms to the symphysis. 5 mm thick coronal and sagittal reformats were acquired. For radiation dos e reduction, the following was used: automated exposure control, adjustment of mA and/or kV accordin g to patient size. COMPARISON: Correlation made to CT angiogram chest 06/21/2019 FINDINGS: Image quality: Excellent. ABDOMEN: Lung bases: Moderate size bilateral dependently layering pleural effusions and associated compressive atelectatic changes are present. Heavy coronary artery calcification versus LAD stent.. Heart size is normal. Solid organs: The spleen is significantly enlarged measuring 19.2 x 20.7 x 9.7 cm. There is a periphe rally based wedge-shaped hypodensity in the lateral midportion measuring about 2.2 cm in depth. The s plenic vein is normally opacified and enlarged. The liver is mildly relatively hypodense. There are 3 or 4 scattered rounded ill-defined hypodensitie s measuring roughly 10 mm. No biliary dilatation. Mild periportal edema. Gallbladder demonstrates mo derate pericholecystic fluid. Biliary system is non dilated. Pancreas enhances normally. No adrena l nodules. Kidneys demonstrate normal size and enhancement, without hydronephrosis. Peritoneum and bowel: Moderate gaseous distention of the colon anteriorly. Solid stool is present in the proximal colon. Small bowel is decompressed. Stomach is unremarkable. Mild amount of diffuse intraperitoneal ascites is present. There is anasarca of the body wall. Nodes and vessels: No retroperitoneal or mesenteric adenopathy by size criteria. Aorta and inferior vena cava are normal in size. Moderate atherosclerotic calcification. Miscellaneous: No ventral hernias. PELVIS: Genitourinary: Bladder wall thickness is normal. Miscellaneous: No inguinal hernias or adenopathy. Bones: No suspicious bony lesions. No vertebral body compression fractures. IMPRESSION: 1. Ascites, body wall anasarca, bilateral pleural effusions, and pericholecystic fluid suggest third spacing of fluid, and/or hypoproteinemia. 2. Significant splenomegaly with a peripheral low-density lesion. This is nonspecific, but can be see n in the setting of infarct, metastatic disease, or contusion in the setting of trauma. Splenomegaly may be secondary to neoplasm, less likely portal hypertension without morphology of a cirrhotic liver . 3. Indistinct small low-density liver lesions, nonspecific. Metastatic disease/lymphoma should be con sidered. 4. Gaseous distention of the colon without evidence of bowel obstruction. Reviewed by: Nery Loja MD on 09/02/2019 2:57 PM PDT Approved by: Nery Loja MD on 09/02/2019 2:57 PM PDT Station ID: [id number]
[2019-09-02 15:53] VITALS: BP 129/78
[2019-09-02] MEDS ORDERED: KETOROLAC 15 MG/ML VIAL IVP STA (16:18)
== END 2019-09-02 17:10 | disposition home or self-care (01) ==
LOC: ED 11:32
DX: E87.71 Transfusion associated circulatory overload (principal); L89.152 Pressure ulcer of sacral region, stage 2; E11.9 Type 2 diabetes mellitus without complications; Z79.4 Long term (current) use of insulin
CPT/HCPCS: 36415; 71045; 74177; 80053; 81001; 83690; 83735; 83880; 85025; 86880; 93005; 96365; 96375; 99284; J7040; Q9967; 81003; 87086

== ENCOUNTER 2019-09-03 17:16 | Outpatient (CLI) | payer MEDICARE | END 2019-09-03 17:17 | disposition critical access hospital (66) | LOC: EMS 17:16 | PROVIDERS: ATTEND Surgery | DX: R41.82 Altered mental status, unspecified (principal); R73.09 Other abnormal glucose | CPT/HCPCS: A0425; A0427 ==

== ENCOUNTER 2019-09-03 17:51 | Observation (INO) | payer MEDICARE ==
--- NOTE | 2019-09-03 18:02 | ED Physician Documentation ---
PD HPI ALTERED MENTAL STATUS - Stated complaint Stated Complaint: LOW BLOOD SUGAR - History obtained from History obtained from: Patient, EMS - History of Present Illness Timing - onset: Today - Additional information Additional information: 73-year-old gentleman with type 2 diabetes noted that his blood sugar was high at 250 and admits that he was "overzealous" with his insulin. This was around 11 AM. He took 25 units of fast acting insulin. Subsequently became obtunded and had a blood sugar of 40. Now feeling better after both oral and IV glucose on the way here. Review of Systems Ten Systems: 10 systems reviewed and negative Constitutional: denies: Fever, Chills Cardiac: denies: Chest pain / pressure, Palpitations Respiratory: denies: Dyspnea, Cough PD PAST MEDICAL HISTORY - Past Medical History Cardiovascular: None Respiratory: None Endocrine/Autoimmune: Type 2 diabetes GI: None : None HEENT: None Musculoskeletal: None Derm: None - Past Surgical History Past Surgical History: Yes - Present Medications Home Medications: Ambulatory Orders Medication Instructions Recorded Confirmed Aspirin Chewable [St Taqueria 81 mg PO DAILY 11/02/12 09/01/19 Aspirin] Hydroxyurea [Hydrea] 500 mg PO DAILY 30 Days #45 capsule 04/01/18 09/01/19 Atorvastatin Calcium 40 mg PO QPM 07/12/19 09/01/19 Insulin Glargine,Hum.rec.anlog 45 units SUBQ DAILY 07/12/19 09/01/19 [Basaglar Kwikpen U-100] Insulin Lispro [Humalog Kwikpen 15 - 40 units SUBQ TIDWM 07/12/19 09/01/19 U-100] Furosemide [Lasix] 20 mg PO DAILY #20 tablet 09/02/19 Hydrocodone/Acetaminophen [[place] 1 each PO Q6H PRN #12 tablet 09/02/19 5-325 Tablet] - Allergies Allergies/Adverse Reactions: Allergies Allergy/AdvReac Type Severity Reaction Status Date / Time Penicillins Allergy Rash Verified 09/03/19 18:12 simvastatin Allergy Itching Verified 09/03/19 18:12 berberine AdvReac Unknown Verified 09/03/19 18:12 gabapentin AdvReac Unknown Verified 09/03/19 18:12 - Social History Does the pt smoke?: No Smoking Status: Never smoker Does the pt have substance abuse?: No - Immunizations Immunizations are current?: Yes - POLST Patient has POLST: Yes PD ED PE NORMAL - Vitals Vital signs reviewed: Yes - General General: Alert and oriented X 3, No acute distress - HEENT HEENT: PERRL, EOMI - Neck Neck: Supple, no meningeal sign, No bony TTP - Respiratory Respiratory: No respiratory distress, Clear bilaterally - Abdomen Abdomen: Soft, Non tender - Rectal Rectal: Other (Brown stool sent for guaiac, stage II sacral pressure ulcer) - Extremities Extremities: Other (He has pedal edema of both legs which he says is chronic and unchanged from his usual.) - Neuro Neuro: Alert and oriented X 3, Normal speech Eye Opening: Spontaneous Motor: Obeys Commands Verbal: Oriented GCS Score: 15 - Psych Psych: Normal mood, Normal affect Results - Vitals Vitals: Vital Signs - 24 hr 09/03/19 09/03/19 09/03/19 17:55 18:37 19:07 Temperature 37.8 C H Heart Rate 86 82 86 Respiratory 18 19 18 Rate Blood Pressure 135/69 H 116/59 L 139/69 H O2 Saturation 99 99 99 09/03/19 19:33 Temperature Heart Rate 84 Respiratory Rate Blood Pressure 120/66 O2 Saturation 100 Oxygen O2 Source Room air - Labs Labs: Microbiology 09/03/19 18:25 Occult Blood - Final Stool Laboratory Tests 09/03/19 09/03/19 18:10 18:10 WBC 9.6 RBC 2.84 L Hgb 8.5 L Hct 25.6 L MCV 90.1 MCH 29.9 MCHC 33.2 RDW 18.3 H Plt Count 95 L MPV 11.2 Neut # (Auto) Not Reportable Lymph # (Auto) Not Reportable [place] # (Auto) Not Reportable Eos # (Auto) Not Reportable Baso # (Auto) Not Reportable Absolute Nucleated RBC Not Reportable Total Counted 100 Band Neuts % (Manual) 7 Abnorm Lymph % (Manual) 0 Blast Cells % 4 H* Nucleated RBC % Not Reportable Neutrophils # (Manual) 7.2 H Lymphocytes # (Manual) 0.8 L Monocytes # (Manual) 0.8 Eosinophils # (Manual) 0.4 Basophils # (Manual) 0.1 Nucleated RBCs 5 Differential Comment MANUAL DIFFERENTIAL Manual Slide Review Indicated WBC Morphology NORMAL APPEARANCE Platelet Estimate DECREASED (<130,000) Platelet Morphology NORMAL APPEARANCE RBC Morph Micro Appear 1+ TEARDROP CELLS Sodium 130 L Potassium 4.2 Chloride 101 Carbon Dioxide 18 L Anion Gap 11.0 BUN 31 H Creatinine 1.0 Estimated GFR (MDRD) 73 L Glucose 50 L* Calcium 7.4 L Total Bilirubin 1.7 H AST 40 ALT 15 Alkaline Phosphatase 201 H Total Protein 5.6 L Albumin 3.0 L Globulin 2.6 Albumin/Globulin Ratio 1.2 Lipase 45 Slides for Path Review Indicated PD MEDICAL DECISION MAKING - ED course ED course: 73-year-old gentleman with symptomatic hypoglycemia prior to arrival which resolved with prehospital interventions. Cause for the episode as well explained by taking an inadvertent overdose of insulin due to high blood sugar. 73-year-old gentleman with history of diabetes and myelofibrosis with previous polycythemia presents with hypoglycemia. His blood sugar dropped precipitously while in the department which is a little odd since he says he took 25 units of fast acting insulin around noon or 1:30 PM. So pretty much should have worn off by now. He was started on a D10 drip. Blood work noted for 2 g drop in hemoglobin since yesterday. And 4% blasts. The case was discussed by phone with Dr. Stacia Roth, oncology in [place] web operations specialist for his physician who felt that the lab value yesterday was probably spurious since it was too high after a 2 unit transfusion and the blasts are expected at this stage of myelofibrosis. We checked his blood sugar again and it was only 105, that was on a D10 drip so probably deserves prolonged observation and spoke with Dr. Lux for same at 7:43 PM. Departure - Departure Disposition: ED Place in Observation Clinical Impression: Hypoglycemia, Anasarca, Myelofibrosis Condition: Stable
[2019-09-03 18:16] LABS: BASOPHILS % (AUTO) 0.6 %; EOSINOPHILS % (AUTO) 1.1 %; HGB - HEMOGLOBIN 8.5 g/dL (14.0-18.0); LYMPHOCYTES % (AUTO) 4.7 %; MEAN CORPUSCULAR HEMOGLOBIN 29.9 pg (27.0-31.0); MEAN CORPUSCULAR HGB CONC 33.2 g/dL (32.0-36.0); MEAN CORPUSCULAR VOLUME 90.1 fL (80.0-94.0); MEAN PLATELET VOLUME 11.2 fL (7.4-11.4); MONOCYTES % (AUTO) 13.2 %; NEUTROPHILS % (AUTO) 71.1 %; PLT - PLATELET COUNT 95 10^3/uL (130-450); RED BLOOD COUNT 2.84 10^6/uL (4.70-6.10); RED CELL DISTRIBUTION WIDTH 18.3 % (12.0-15.0); WHITE BLOOD COUNT 9.6 x10^3/uL (4.8-10.8)
[2019-09-03 18:19] LABS: ABNORMAL LYMPHS % (MANUAL) 0 %
[2019-09-03 18:33] LABS: BAND NEUTROPHILS % (MANUAL) 7 %; BASOPHILS # (MANUAL) 0.1 10^3/uL (0-0.1); BASOPHILS % (MANUAL) 1 %; EOSINOPHILS # (MANUAL) 0.4 10^3/uL (0-0.7); LYMPHOCYTES # (MANUAL) 0.8 10^3/uL (1.5-3.5); LYMPHOCYTES % (MANUAL) 8 %; MONOCYTES # (MANUAL) 0.8 10^3/uL (0.0-1.0)
[2019-09-03 18:38] LABS: DIFFERENTIAL COMMENT MANUAL DIFFERENTIAL; PLATELET ESTIMATE, MANUAL DECREASED (<130,000) (NORMAL); PLATELET MORPHOLOGY NORMAL APPEARANCE (NORMAL)
[2019-09-03 18:41] LABS: ALBUMIN/GLOBULIN RATIO 1.2 (1.0-2.2); BILIRUBIN,TOTAL 1.7 mg/dL (0.2-1.0); CALCIUM 7.4 mg/dL (8.5-10.3); TOTAL PROTEIN 5.6 g/dL (6.7-8.2)
[2019-09-03] MEDS ORDERED: DEXTROSE 10% 1,000 ML IV SCH (19:00)
[2019-09-03] MEDS ORDERED: ONDANSETRON 4 MG/2 ML VIAL IVP PRN (19:44)
[2019-09-03] MEDS ORDERED: SODIUM CHLORIDE FLUSH 0.9% 10 ML SYRINGE IVP PRN (19:44)
[2019-09-03] MEDS ORDERED: ACETAMINOPHEN 325 MG TABLET PO PRN (19:44)
[2019-09-03] MEDS ORDERED: DEXTROSE 10% 1,000 ML BAG IV ONE (19:45)
--- NOTE | 2019-09-03 19:48 | HISTORY & PHYSICAL EXAMINATION ---
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 When EMS arrived, he is found to be blood glucose in the 40s and as this improved with an amp of dextrose to 100, his mentation improved and returned to baseline. He states that he took his blood glucose this morning around 1030 and found that it was 255. He did not administer any insulin at that time and he had lunch at about 130. He states he checked his blood glucose after lunch and it was still elevated at around 235 and so he administered 40 units of short acting insulin. He states that he does not take a scheduled dose of insulin each day. He reports taking 45 units of long- acting insulin each night although he did not take this last night as he was seen in the emergency department yesterday for back pain and chills after receiving 2 units of packed red blood cells for hemoglobin of 7.2. He was discharged home and reported feeling chest weak and drained given his prolonged ER visit and so he did not take his insulin yesterday. He states he takes a very dose of short acting insulin depending on how he feels and how elevated his blood glucose is. He does not recall what his prior A1c's are and he does not get them checked now given he receives multiple units of blood transfusions for his myelofibrosis. He reports having one hypoglycemic episode about every 2 weeks. He believes starts have symptoms once his blood glucose hits 70. He has not become unresponsive like today before. His tells me that he is in the process to an energy trader for continuous blood glucose monitoring. He reports no fevers today, chills, chest pain, dyspnea. He does report lower extremity edema which has been present for the past few weeks and has been worsening with the amount of blood transfusions he has been receiving. [facility] of his myelofib[facility]. He is currently taking hydroxyurea every other day and he is due for his next dose today. He reports having a history of coronary artery disease for which takes aspirin and statin. He reports having a recent angiogram at [facility] in [place] but he did not have any stents placed due to his current medical condition and the fact that he had multiple arteries with heart disease. He does report recurrent angina when he is severely anemic but that his angina resolves with transfusions. In the emergency room, he is found have a blood glucose of 48 which had decreased 101 after treatment with EMS for which patient received an amp of dextrose and some food. He therefore started on D10 at 200 mL an hour. Despite this, an hour later his blood glucose only 105 and so medicine was consulted for admission. The emergency room provider did speak with the on-call oncologist for the [facility] given the findings of 4% blast cells and the patient's worsening anemia. They felt that the blast cells are expected given his myelofibrosis and that his hemoglobin from yesterday was likely inaccurate and that today is more presented of of his actual hemoglobin after the transfusion. I did discuss goals of care with the patient and he would like to be a full code. 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 - Family & Social History Family History Comment/Other: He reports his father from alcoholism. He reports one of his grandparents had heart disease. Living arrangement: At home Living Situation: With spouse/s.o. Social History Notes: He lives at home with his , Michelle. He has never smoked denies any current alcohol use. 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 - POLST Patient has POLST: Yes Meds/Allgy - Home Medications Home Medications: Ambulatory Orders Medication Instructions Recorded Confirmed Aspirin Chewable [St Taqueria 81 mg PO DAILY 11/02/12 09/01/19 Aspirin] Hydroxyurea [Hydrea] 500 mg PO DAILY 30 Days #45 capsule 04/01/18 09/01/19 Atorvastatin Calcium 40 mg PO QPM 07/12/19 09/01/19 Insulin Glargine,Hum.rec.anlog 45 units SUBQ DAILY 07/12/19 09/01/19 [Basaglar Kwikpen U-100] Insulin Lispro [Humalog Kwikpen 15 - 40 units SUBQ TIDWM 07/12/19 09/01/19 U-100] Furosemide [Lasix] 20 mg PO DAILY #20 tablet 09/02/19 Hydrocodone/Acetaminophen [Chauncey 1 each PO Q6H PRN #12 tablet 09/02/19 5-325 Tablet] - Allergies Allergies/Adverse Reactions: Allergies Allergy/AdvReac Type Severity Reaction Status Date / Time Penicillins Allergy Rash Verified 09/03/19 18:12 simvastatin Allergy Itching Verified 09/03/19 18:12 berberine AdvReac Unknown Verified 09/03/19 18:12 gabapentin AdvReac Unknown Verified 09/03/19 18:12 Review of Systems - Constitutional Constitutional: reports: Fatigue. denies: Fever, Chills, Poor appetite - Ears, Nose & Throat Ears, Nose & Throat: denies: Nasal congestion, Sore throat - Cardiovascular Cariovascular: reports: Edema, Lightheadedness. denies: Chest pain, Exertional dyspnea, Decr. exercise tolerance - Respiratory Respiratory: reports: Cough. denies: Sputum production, SOB at rest, SOB with exertion - Gastrointestinal Gastrointestinal: denies: Abdominal pain, Rectal bleeding, Bloody stools, Nausea, Vomiting - Genitourinary Genitourinary: reports: Urgency. denies: Dysuria, Frequency, Hematuria - Musculoskeletal Musculoskeletal: denies: Limited range of motion, Muscle weakness - Neurological Neurological: reports: Dizziness. denies: General weakness, Focal weakness - Hematologic/Lymphatic Hematologic/Lymphatic: reports: Anemia. denies: Bleeding tendencies - All Other Systems All Other Systems: reports: Reviewed and negative Prior Level of Functionality: His physical activity has declined over the past few weeks and months. His tells me that he occasionally uses a wheelchair as he can develop angina with exertion due to his coronary artery disease. He otherwise ambulates on his own. Exam - Vital Signs Reviewed Vital Signs: Yes Vital Signs: Vital Signs x48h Temp Pulse Resp BP Pulse Ox 09/03/19 19:33 84 120/66 100 09/03/19 19:07 86 18 139/69 H 99 09/03/19 18:37 82 19 116/59 L 99 09/03/19 17:55 37.8 C H 86 18 135/69 H 99 - Physical Exam General Appearance: positive: No acute distress, Alert, Other Eyes Bilateral: positive: Normal inspection ENT: positive: ENT inspection nml Neck: positive: Nml inspection Respiratory: positive: No respiratory distress. negative: Wheezes, Rales Cardiovascular: positive: Regular rate & rhythm. negative: Tachycardia, Bradycardia, Systolic murmur Abdomen: positive: Non-tender, No distention. negative: Tenderness, Guarding, Rebound Skin: positive: Warm, Dry Extremities: positive: Full ROM, Pedal edema (+2 pitting edema in bilateral lower extremities.) Neurologic/Psychiatric: positive: Oriented x3, Motor nml. negative: Disoriented to person, Disoriented to place, Disoriented to time Conclusion/Plan - Problem List (1) Hypoglycemia Conclusion/Plan: Suspect secondary to his short acting insulin. He is on Humalog at home and the duration of this insulin is up to 7 hours and type II diabetics. Despite monitoring in the emergency department, he remained hypoglycemic and required a D10 drip at 20 mL an hour. Despite this, his blood glucose is only 105 and so he will be placed in observation. We will hold his home insulin for the time being. We will monitor his blood glucose every 2 hours. We will discontinue the D10 drip the time being but if his hypoglycemia returns then this will need to be resumed. He will likely need adjusting of his home insulin regimen. We will not check a hemoglobin A1c given he is required many blood transfusion with the most recent being just a couple of days ago and so his A1c will not be accurate. Carb controlled diet. industrial tech instructor consult. (2) Type 2 diabetes mellitus treated with insulin Conclusion/Plan: There is no recent A1c available and do not believe obtaining 1 of them would be accurate given his recent blood transfusions. He is on glargine and lispro at home. Plan as mentioned above for the hypoglycemia. (3) Myelofibrosis Conclusion/Plan: He is a history of polycythemia vera with myeloproliferative disorder, Lucas 2+ and unfortunately now has myelo fibrosis which was diagnosed in August of this year. He has significant anemia secondary to this and has required multiple transfusions with the most recent being a few days ago. His hemoglobin has decreased since yesterday but suspect that yesterday was likely a falsely elevated reading and that today is more reflective of what his actual hemoglobin is. He has had recent colonoscopy and EGD without any evidence of bleeding. He will continue outpatient follow-up with hematology oncology. We will recheck his hemoglobin in the morning. Continue his home hydroxyurea. (4) Hyponatremia Conclusion/Plan: This is likely hypervolemic hyponatremia given he is quite edematous on exam. He does not have a history of heart failure although I do not have records of his most recent echocardiogram he does not appear to be a cirrhotic. Suspect this is likely just total body water overload from the amount of blood transfusions he has received. We will continue to monitor for the time being. Can consider a dose of Lasix if he develops any dyspnea or hypoxia. (5) Coronary artery disease Conclusion/Plan: He is on aspirin and atorvastatin at home which will be continued. He has known coronary artery disease but not a candidate for intervention given his myelofibrosis and anemia. We will transfuse as needed for goal hemoglobin greater than 8 given his coronary artery disease. - Lab Results Lab results reviewed: Yes Fish Bones: 09/03/19 18:10 09/03/19 18:10 Core Measures - Anticipated LOS I expect patient to be DC'd or transferred within 96 hours.: Yes - Issues Hospital Issues and Management Plan: 73-year-old male with type 2 diabetes mellitus on insulin presents with a hypoglycemia that has persisted despite observation in the emergency department. We will place in observation for frequent blood glucose checks and IV dextrose as needed. - DVT/VTE - Prophylaxis VTE/DVT Device ordered at admit?: Yes VTE/DVT Prophylaxis med ordered at admit?: No Not Ordered - Medical Reason: Not indicated
[2019-09-03] MEDS ORDERED: HYDROXYUREA 500 MG CAPSULE PO SCH (22:00)
[2019-09-03] MEDS ORDERED: NITROGLYCERIN SL 0.4 MG TABLET SL STA (23:13)
[2019-09-03] MEDS: SODIUM CHLORIDE FLUSH 0.9% 10 ML SYRINGE IVP SCH (23:40)
[2019-09-03] MEDS ORDERED: BENZOCAINE/MENTHOL LOZENGE MM PRN (23:51)
[2019-09-04 05:39] LABS: BASOPHILS % (AUTO) 0.5 %; EOSINOPHILS % (AUTO) 0.3 %; LYMPHOCYTES # (AUTO) 0.3 10^3/uL (1.5-3.5); LYMPHOCYTES % (AUTO) 5.9 %; MEAN CORPUSCULAR HEMOGLOBIN 29.6 pg (27.0-31.0); MEAN CORPUSCULAR HGB CONC 32.7 g/dL (32.0-36.0); MEAN CORPUSCULAR VOLUME 90.7 fL (80.0-94.0); MONOCYTES # (AUTO) 0.7 10^3/uL (0.0-1.0); MONOCYTES % (AUTO) 11.2 %; NEUTROPHILS # (AUTO) 4.1 10^3/uL (1.5-6.6); PLT - PLATELET COUNT 75 10^3/uL (130-450); RED CELL DISTRIBUTION WIDTH 18.2 % (12.0-15.0); WHITE BLOOD COUNT 5.8 x10^3/uL (4.8-10.8)
[2019-09-04 05:53] LABS: CALCIUM 7.4 mg/dL (8.5-10.3); CREATININE 0.9 mg/dL (0.6-1.2); MAGNESIUM 2.1 mg/dL (1.7-2.8); PHOSPHORUS 3.5 mg/dL (2.5-4.6)
[2019-09-04 06:12] LABS: PLATELET ESTIMATE, MANUAL DECREASED (<130,000) (NORMAL); PLATELET MORPHOLOGY NORMAL APPEARANCE (NORMAL)
[2019-09-04] MEDS: INSULIN ASPART 300 UNIT/3 ML PEN SUBQ SCH ×2 (08:18→12:15)
[2019-09-04] MEDS: SODIUM CHLORIDE FLUSH 0.9% 10 ML SYRINGE IVP SCH (08:19)
[2019-09-04] MEDS ORDERED: ASPIRIN CHEW 81 MG TABLET PO SCH (09:00)
[2019-09-04] MEDS ORDERED: METOPROLOL TARTRATE 25 MG TABLET PO SCH (09:00)
[2019-09-04] MEDS ORDERED: FUROSEMIDE 20 MG TABLET PO SCH (09:00)
[2019-09-04] MEDS ORDERED: ISOSORBIDE MONONITRATE ER 30 MG TABLET PO SCH (09:00)
--- NOTE | 2019-09-04 10:11 | PHARMACY PROGRESS NOTE ---
- Best Possible Medication History Admit Date and Time: 09/03/191943 Processed by: Pharmacy Medication History completed: Yes Patient Interview: Completed Secondary Source(s): Spouse/Significant other, Physician records, Pharmacy records, Insurance records As the person ultimately responsible for medication therapy, providers are able to order a medication from an existing home medication list in [facility] via the "Reconcile Routine" prior to Confirmation of that medication by wind farm support specialist. Such practice is discouraged except when the physician, in their clinical judgment, deems that a medical need exists for a medication without regard to previous use.
[2019-09-04 13:48] VITALS: BP 92/48
--- NOTE | 2019-09-04 14:31 | Discharge Plan ---
Discharge Plan Problem Reviewed?: Yes Disposition: Home, Self Care Condition: Stable Diet: Regular Activity Restrictions: Activity as Tolerated Shower Restrictions: No Driving Restrictions: No Health Concerns: You presented to our emergency room with a very low blood sugar due to an accidental overdose of short acting insulin. After being placed in observation, your sugar gradually rebounded to normal. While here, we also noticed that you have severe anemia due to your myelofibrosis. Hemoglobin is 8 to 8.5 g. Normal is 14. We have typed and crossed you for a blood transfusion and he would like to return on Friday to get it done. Plan of Treatment: 1. Please return to the hospital at 11 AM Friday morning. 2. Do not remove the blood identification band on your wrist. If you do remove it, we will have to start the process all over again and you may not be able to get your blood transfusion on Friday. 3. Please see your primary care provider in follow-up or your oncologist. Which ever is easiest. 4. I am providing you with a sliding scale for insulin. Take short acting insulin for the following values: 125-150 = 2 units 151-175 = 4 units 176-200 = 6 units 210-225 = 8 units 226-250 = 10 units 251-275 = 12 units 276-300 = 14 units 301-325 = 16 units 326-350 = 18 units 351-375 = 20 units 376-400 = 22 units Care Goals: 1. To seek treatment for your bone marrow disease. 2. To discuss with your family future scenarios on your desire to have them take care of you if you get too sick to take care of yourself Assessment: Patient understands treatment plan, goals, and will follow through No Smoking: If you smoke, Please STOP! Call for help. Follow-up with: Eric Cruz DO [Primary Care Provider] -
--- NOTE | 2019-09-04 14:59 | DISCHARGE SUMMARY ---
Discharge Summary Admit Date: 09/03/19 Discharge Date: 09/04/19 Discharging Provider: Haley Murillo MD Primary Care Provider: Eric Cruz MD; Alan Russell MD Code Status: Attempt Resuscitation Condition at Discharge: Stable Discharge Disposition: 01 Home, Self Care - DIAGNOSES Discharge Diagnoses with Status of Each Condition: 1. Hypoglycemia 2. Accidental overdose of insulin 3. Type 2 diabetes mellitus, on long-term insulin 4. Myelofibrosis 5. Stable angina 6. Coronary artery disease 7. 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 When EMS arrived, he is found to be blood glucose in the 40s and as this improved with an amp of dextrose to 100, his mentation improved and returned to baseline. He states that he took his blood glucose this morning around 1030 and found that it was 255. He did not administer any i nsulin at that time and he had lunch at about 130. He states he checked his blood glucose after lunch and it was still elevated at around 235 and so he administered 40 units of short acting insulin. He states that he does not take a scheduled dose of insulin each day. He reports taking 45 units of long- acting insulin each night although he did not take this last night as he was seen in the emergency department yesterday for back pain and chills after receiving 2 units of packed red blood cells for hemoglobin of 7.2. He was discharged home and reported feeling chest weak and drained given his prolonged ER visit and so he did not take his insulin yesterday. He states he takes a very dose of short acting insulin depending on how he feels and how elevated his blood glucose is. He does not recall what his prior A1c's are and he does not get them checked now given he receives multiple units of blood transfusions for his myelofibrosis. He reports having one hypoglycemic episode about every 2 weeks. He believes starts have symptoms once his blood glucose hits 70. He has not become unresponsive like today before. His tells me that he is in the process to an stitch bonding machine tender for continuous blood glucose monitoring. He reports no fevers today, chills, chest pain, dyspnea. He does report lower extremity edema which has been present for the past few weeks and has been worsening with the amount of blood transfusions he has been receiving. He has been referred to the [facility] for treatment of his myelofibrosis. He is currently taking hydroxyurea every other day and he is due for his next dose today. He reports having a history of coronary artery disease for which takes aspirin and statin. He reports having a recent angiogram at [facility] in [place] but he did not have any stents placed due to his current medical condition and the fact that he had multiple arteries with heart disease. He does report recurrent angina when he is severely anemic but that his angina resolves with transfusions. In the emergency room, he is found have a blood glucose of 48 which had d ecreased 101 after treatment with EMS for which patient received an amp of dextrose and some food. He therefore started on D10 at 200 mL an hour. Despite this, an hour later his blood glucose only 105 and so medicine was consulted for admission. The emergency room provider did speak with the on-call oncologist for the [facility] given the findings of 4% blast cells and the patient's worsening anemia. They felt that the blast cells are expected given his myelofibrosis and that his hemoglobin from yesterday was likely inaccurate and that today is more presented of of his actual hemoglobin after the transfusion. I did discuss goals of care with the patient and he would like to be a full code. 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 Family & Social History Family History Comment/Other: He reports his father from alcoholism. He reports one of his grandparents had heart disease. Living arrangement: At home Living Situation: With spouse/s.o. Social History Notes: He lives at home with his , Michelle. He has never smoked denies any current alcohol use. 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 - HOSPITAL COURSE Hospital Course: The patient was placed on a D10 drip, glucose gradually improved. He was able to be taken off the D10 drip, and he started eating breakfast and lunch. Glucose has been 50 on admission, and was 164 by the time of discharge. Chronic hyponatremia of 130 went down to 128 by the time of discharge with fluid resuscitation.I have given him a printed out form for sliding scale short acting insulin. I put it in his discharge instructions and I printed up with large font, italicized and bold faced on a separate piece of paper. Also of note is his stable angina. Unfortunately he has severe diffuse coronary artery disease and is not a candidate for stent or bypass surgery due to his anatomy, age, and comorbidities. Anemia will bring on the angina. We did offer him transfusion for hemoglobin of 8 on the day of discharge. However he would prefer to go home, and come back on September 05, to get 1 unit transfusion. He also states that his oncologist, Dr. Alan Russell, would like him to get a Lucas 2 mutation level. We will be doing that on that day. Since his hypoglycemia has resolved, he is now felt stable for discharge. Exam at discharge is 37.0 temperature. Pulse 79. Blood pressure 96/52. Respirations 20. 94% on room air. He is a cachectic white male, grayish skin and cast because of illness. Short of breath with speaking and walking. He is 5 foot 9 inches tall and weighs 78 kg. He has multiple ecchymosis and skin tears from fragile skin in his forearms. Limbs are quite thin, with severe muscle wasting, while his central body has fullness and anasarca. I have asked him to make sure he does not remove the armband for the type and cross. If he removes it, we will have to start the process all over again. He will return on Friday for 1 unit packed cell transfusion. I will be admitting the patient. Advanced care planning was done today. Long conversation was held about future plans in view of his prognosis. Please see under separate dictation. - ALLERGIES Allergies/Adverse Reactions: Allergies Allergy/AdvReac Type Severity Reaction Status Date / Time Penicillins Allergy Rash Verified 09/03/19 18:12 simvastatin Allergy Itching Verified 09/03/19 18:12 berberine AdvReac Unknown Verified 09/03/19 18:12 gabapentin AdvReac Unknown Verified 09/03/19 18:12 - MEDICATIONS Home Medications: Ambulatory Orders Medication Instructions Recorded Confirmed Aspirin Chewable [St Taqueria 81 mg PO DAILY 11/02/12 09/04/19 Aspirin] Atorvastatin Calcium 40 mg PO QPM 07/12/19 09/04/19 Insulin Glargine,Hum.rec.anlog 45 units SUBQ DAILY 07/12/19 09/04/19 [Basaglar Kwikpen U-100] Insulin Lispro [Humalog Kwikpen 5 units SUBQ TIDWM 07/12/19 09/04/19 U-100] Hydroxyurea [Hydrea] 500 mg PO 1-2XD 09/04/19 09/04/19 Isosorbide Mononitrate [Isosorbide 60 mg PO DAILY 09/04/19 09/04/19 Mononitrate ER] Metoprolol Tartrate 12.5 mg PO BID 09/04/19 09/04/19 Nitroglycerin [Nitrostat] 0.4 mg SL Q5M PRN 09/04/19 09/04/19 - LABS Result Diagrams: 09/04/19 05:17 09/04/19 05:17
--- NOTE | 2019-09-04 15:07 | ADVANCE CARE PLANNING NOTE ---
Advance Care Planning - Planning Encounter Date: 09/04/19 Time: 09:00 Purpose: establish code status in view of grave prognosis of disease Parties in Attendance: hospitalist and patient Decisional Capacity of the Patient: intact. alert, oriented, lucid. 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 Now requiring multiple transfusions. Awaiting possible opinion from [facility] for further treatment. - Encounter Subjective/Patient's Story: Born and raised in the [facility] region of [place]. From [place] he went to [facility]. His main job in life was [employer]. Last time he was able to trying to panel was yesterday. It is actually been longer than that but he attempted it yesterday and was unsuccessful because of severe fatigue. [place]. He was getting away from a bad situation from his first marriage. His had left him, taken custody of the kids, and he was in the midst of a bitter custody kay. It was psychologically very debilitating and he came to the [place] to be closer to family who are more supportive. He got in 1991 to a second and has had 2 kids with her. One son and fianc currently live with them. They are b uilding their own home and are living with him until their home was done. He has also establish a relationship with his daughter from his first marriage and it is a good 1. He feels like he was able to do what he wanted to do with his life up until approximately 2012. He been diagnosed with polycythemia vera syndrome approximately 2010. All the medicines he is taken since then have made him ti red, fatigue, memory loss. Suppressed appetite. Initially he was on hydroxyurea, then anagrelide, but the medicines did not work as well as he wanted to. He was also on periodic phlebotomy. Cell counts were all over the place and he was just getting increasingly more more fatigued. Visits went from every 6 months to every 2 months. He was reasonably controlled, and felt to be stable in spite of his disease status. Is been the last 6 months that things have been steadily going downhill with regards to fatigue, ability to do work around the house, even more so that usual. He started developing anemia as opposed to polycythemia. 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 He has hepatosplenomegaly, anasarca, and the top it all off had to go to [place] for angina in June 2019. Although he had a small heart attack, he is not a candidate for bypass or stenting because the former would require a better functional status, and the latter would require less arteries to stent. So right now is living with stable angina but he is very short of breath and tired. He lives on [address] in [place]. [place] acres is mode on a regular basis by him using a riding lawnmower. does her vegetable garden and he loves to watch her do that. He loves to maintain the [place], and has a perimeter pathway all around the property. But he is not been able to do that more and more because he is so fatigued. Even getting on the riding lawnmower to drive to her vegetable garden is too exhausting for him. He now presents to our hospital because he took 40 units of short acting insulin for his glucose. He became hypoglycemic and passed out. At this point, he has been so focused on the day-to-day survival of his disease status. Follow-up with oncology, blood draws, blood transfusions that the larger picture has not been addressed. He states that he is never really thought about what it would mean for him to have to plan for his gradual deterioration and eventual . He thought that he has "years to go" before he has to think about these things. As such he is never spoken to his family about what he wants toward the end. Has not thought about where he wants to . Does he want to at home or does he want to in the hospital? He has not thought about gradual debility to the point of being unable to get out of bed and who would take care of him. At this point in time he states that his daughter and son will take care of him. However, he is never asked them this. He just assumed that his family would been together and take turns. I discussed cardiac resuscitation. I described CPR, intubation, cardioversion, medication injection. I described the relative low percentage of survivability. Objective/Medical Story: This is a 73-year-old male with a past medical history significant for type 2 diabetes mellitus on insulin, myelofibrosis with a history of polycythemia vera, coronary artery disease who presents today after he was found unresponsive by his this afternoon. When EMS arrived, he is found to be blood glucose in the 40s and as this improved with an amp of dextrose to 100, his mentation improved and returned to baseline. He states that he took his blood glucose this morning around 1030 and found that it was 255. He did not administer any insulin at that time and he had lunch at about 130. He states he checked his blood glucose after lunch and it was still elevated at around 235 and so he administered 40 units of short acting insulin. He states that he does not take a scheduled dose of insulin each day. He reports taking 45 units of long- acting insulin each night although he did not take this last night as he was seen in the emergency department yesterday for back pain and chills after receiving 2 units of packed red blood cells for hemoglobin of 7.2. He was discharged home and reported feeling chest weak and drained given his prolonged ER visit and so he did not take his insulin yesterday. He states he takes a very dose of short acting insulin depending on how he feels and how elevated his blood glucose is. He does not recall what his prior A1c's are and he does not get them checked now given he receives multiple units of blood transfusions for his myelofibrosis. He reports having one hypoglycemic episode about every 2 weeks. He believes starts have symptoms once his blood glucose hits 70. He has not become unresponsive like today before. His tells me that he is in the process to an rede[employer] gun[employer] for continuous blood glucose monitoring. He reports no fevers today, chills, chest pain, dyspnea. He does report lower extremity edema which has been present for the past few weeks and has been worsening with the amount of blood transfusions he has been receiving. He has been referred to the [facility] for treatment of his myelofibrosis. He is currently taking hydroxyurea every other day and he is due for his next dose today. He reports having a history of coronary artery disease for which takes aspirin and statin. He reports having a recent angiogram at [facility] in [place] but he did not have any stents placed due to his current medical condition and the fact that he had multiple arteries with heart disease. He does report recurrent angina when he is severely anemic but that his angina resolves with transfusions. In the emergency room, he is found have a blood glucose of 48 which had decreased 101 after treatment with EMS for which patient received an amp of dextrose and some food. He therefore started on D10 at 200 mL an hour. Despite this, an hour later his blood glucose only 105 and so medicine was consulted for admission. The emergency room provider did speak with the on-call oncologist for the [facility] given the findings of 4% blast cells and the patient's worsening anemia. They felt that the blast cells are expected given his myelofibrosis and that his hemoglobin from yesterday was likely inaccurate and that today is more presented of of his actual hemoglobin after the transfusion. I did discuss goals of care with the patient and he would like to be a full code. 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 Goals of Care: 1. He would like to return to a baseline status where he can ride his riding lawnmower. 2. He would like to seek an opinion from [facility] about what the probability is for him receiving treatment, and what the overall prognosis would be 3. If he becomes disabled, and no longer able to take care of himself, he would like to stay at home. Plan: 1. Follow-up with his oncologist after this visit. 2. Return on September 05, for transfusion of 1 packed cell 3. I will be drawing a Lucas 2 mutation on that day per Dr. Russell's order 4. Discussed with his family his future plans. Discussed with him that he would like them to take care of him at home if he gets too ill to take care of himself. 5. Discussed with his family his CODE STATUS. Let us know if he wishes to change that status. Code Status: Attempt Resuscitation
[2019-09-04] MEDS ORDERED: ATORVASTATIN 40 MG TABLET PO SCH (21:00)
== END 2019-09-04 15:06 | disposition home or self-care (01) ==
LOC: ED 17:51 → MS2 19:44
PROVIDERS: ADMIT Internal Medicine; ATTEND Specialist
DX: T38.3X1A Poisoning by insulin and oral hypoglycemic [antidiabetic] drugs, accidental (unintentional), initial encounter (principal); E11.649 Type 2 diabetes mellitus with hypoglycemia without coma; D75.81 Myelofibrosis; D63.8 Anemia in other chronic diseases classified elsewhere; D45 Polycythemia vera; I25.118 Atherosclerotic heart disease of native coronary artery with other forms of angina pectoris; E87.1 Hypo-osmolality and hyponatremia; R64 Cachexia; R60.1 Generalized edema; Z68.25 Body mass index [BMI] 25.0-25.9, adult; Z79.4 Long term (current) use of insulin; Z79.82 Long term (current) use of aspirin; Z79.899 Other long term (current) drug therapy
CPT/HCPCS: 36415; 80048; 80053; 82272; 83690; 83735; 84100; 85025; 86850; 86900; 86901; 96365; 96366; 99285; A9270